=== PATIENT | male | born 1960 | race Caucasian/White ===

== ENCOUNTER → 2016-06-27 | Outpatient (CLI) | payer BC ==
--- NOTE | 2016-06-28 10:39 | ECHOF ---
Referral Reason:Dyspnea R06.00 MEASUREMENTS -------- HEIGHT: 152.4 cm WEIGHT: 104.3 kg BP: IVSd: 1.0 cm (0.6 - 1.1) LVIDd: 3.4 cm (3.9 - 5.3) LVPWd: 1.7 cm (0.6 - 1.1) IVSs: 1.5 cm LVIDs: 3.0 cm LVPWs: 1.4 cm MV E Shahriar: 0.54 m/s MV DecT: 197 ms MV A Shahriar: 0.80 m/s MV E/A Ratio: 0.68 RAP: 5.00 mmHg RVSP: 13.69 mmHg FINDINGS -------- Sinus rhythm. This was a techncally difficult study with suboptimal views, , Definity utilized for enhancement of images. There is mild concentric left ventricular hypertrophy. Overall left ventricular systolic function is normal with, an EF between 55 - 60 %. The right ventricle is normal in size. The left atrial size is normal. The right atrial size is normal. 1.5MG OF DEFINITY UTLIZED: 2 OR MORE WALL SEGMENTS NOT VISUALIZED. The aortic valve was not well visualized. Mild mitral annular calcification present. Mild mitral regurgitation is present. Mild tricuspid regurgitation present. There is no evidence of pulmonary hypertension. The right ventricular systolic pressure, as measured by Doppler, is 13.69mmHg. The pulmonic valve was not well visualized. The aortic root size is normal. There is no pericardial effusion. CONCLUSIONS -------- 1. This was a techncally difficult study with suboptimal views, , Definity utilized for enhancement of images. 2. The right ventricular systolic pressure, as measured by Doppler, is 13.69mmHg. 3. The pulmonic valve was not well visualized. 4. The aortic root size is normal. 5. There is no pericardial effusion. 6. There is mild concentric left ventricular hypertrophy. 7. Overall left ventricular systolic function is normal with, an EF between 55 - 60 %. 8. 1.5MG OF DEFINITY UTLIZED: 2 OR MORE WALL SEGMENTS NOT VISUALIZED. 9. The aortic valve was not well visualized. 10. Mild mitral annular calcification present. 11. Mild mitral regurgitation is present. 12. Mild tricuspid regurgitation present. 13. There is no evidence of pulmonary hypertension. LEAD SECTION SUPERVISOR: Yvette Hector RDCS
== END | disposition home or self-care (01) ==
LOC: RADECHMAIN 14:44
PROVIDERS: ATTEND Family Medicine
DX: I08.1 Rheumatic disorders of both mitral and tricuspid valves (principal)
CPT/HCPCS: 93306; Q9957

== ENCOUNTER 2016-11-30 09:32 | Day surgery (SDC) | payer BC ==
[2016-11-28 12:13] VITALS: BMI 31.8
[~2016-11-30 09:32] MED LIST: LACTATED RINGERS 1,000 ML IV SCH
[2016-11-30] MEDS ORDERED: LIDOCAINE 1% 20 ML VIAL (10MG/ML) FOR IV START SQ ONE (09:52)
[2016-11-30 09:57] VITALS: RESP 16; TEMP 98.3
[2016-11-30] MEDS ORDERED: PROPOFOL 10 MG/ML 20 ML VIAL IV ONE (10:45)
--- NOTE | 2016-11-30 11:22 | P.PCN ---
Date of Procedure: 11/30/16 Preoperative Diagnosis: Postoperative Diagnosis: Procedure(s) Performed: Procedure: Total colonoscopy. Preoperative diagnosis: Screening for neoplasia. Postoperative diagnosis: Sigmoid diverticulosis with no evidence of acute diverticulitis, strictures, polyps or cancer. Preparation: HalfLytely prep. Sedation: Was provided by anesthesia. Brief clinical history: The patient is a 56-year-old male who is referred for this evaluation for screening for neoplasia age being his risk factor. He has no abdominal complaints, bleeding or anemia. No family history of colon cancer. This would be his first colonoscopy. Procedure: With the patient on his left lateral decubitus position and after informed consent and adequate sedation, the perianal area was inspected and it did not show any fissures or fistulas. There were no masses felt on digital rectal examination. The Olympus CFQ 160L video colonoscope was then inserted in the rectum in the usual fashion and advanced to the cecum. The preparation was less than ideal, especially on the right side, with thick secretions and fecal debris that I could not wash off or suction completely. There were multiple diverticular orifices seen scattered in the sigmoid with no evidence of acute diverticulitis or strictures. No obvious polyps or tumors were seen. I retroflexed the endoscope in the rectum before the endoscope was withdrawn. The patient tolerated the procedure well. Plan: The patient was reassured. Discussed dietary measures. Since his preparation was less than ideal, I recommended repeat exam in 3-5 years before going with a 10-year screening schedule. He will follow up with you as planned. Implants: Indications for Procedure: Operative Findings: Description of Procedure:
[2016-11-30 11:53] VITALS: BP 128/89; PULSE 86
== END 2016-11-30 12:09 | disposition home or self-care (01) ==
LOC: ORWHC2ENDO 09:32
DX: Z12.11 Encounter for screening for malignant neoplasm of colon (principal); K57.30 Diverticulosis of large intestine without perforation or abscess without bleeding; I10 Essential (primary) hypertension; Z79.82 Long term (current) use of aspirin; Z79.899 Other long term (current) drug therapy; Z86.14 Personal history of Methicillin resistant Staphylococcus aureus infection
CPT/HCPCS: J2704; G0121; 45378

== ENCOUNTER → 2017-05-07 | Outpatient (CLI) | payer BC ==
--- NOTE | 2017-05-08 15:18 | US ---
EXAMINATION TYPE: US venous doppler duplex LE DATE OF EXAM: 05/07/2017 4:00 PM COMPARISON: Prior bilateral venous ultrasound May 29, 2016 CLINICAL HISTORY: M79.604,M79.605 ARIK LEG PAIN. SIDE PERFORMED: Bilateral 1) Color flow is present and patency is documented in the following vessels. No DVT or SVT is noted. External Iliac Vein (EIV) Common Femoral Vein Deep Femoral Vein Femoral Vein Popliteal Vein Proximal Calf Veins 2) There is venous reflux noted at the following venous levels: Common Femoral Vein Deep Femoral Vein Femoral Vein Popliteal Vein Greater Saph Vein Upper Small Saph Vein Grayscale, color doppler, spectral doppler imaging performed of the deep veins of the lower extremiti es. There is normal flow, compressibility, vascular waveforms. IMPRESSION: No evidence of acute DVT or SVT in either lower extremity. Bilateral venous reflux is ob served during real-time scanning per technologist as noted above.
--- NOTE | 2017-05-09 13:53 | P.ARTDOP ---
Arterial Doppler LOWER EXTREMITY ARTERIAL DOPPLER: DATE OF SERVICE: 05/07/2017 Reason for study: Bilateral calf pain and bilateral calf ulcers. Doppler waveforms: Multiphasic bilaterally throughout. Pulse volume recording: Normal configuration. Pressure gradients: None. Ankle-brachial indices: Greater than 1 bilaterally. Toe pressures: 143 on the right, 143 on the left Impression: Normal study.
== END | disposition home or self-care (01) ==
LOC: RADUSWWP 14:08
PROVIDERS: ATTEND Family Medicine
DX: I87.2 Venous insufficiency (chronic) (peripheral) (principal)
CPT/HCPCS: 93923; 93970

== ENCOUNTER → 2018-04-18 | Outpatient (CLI) | payer BC ==
--- NOTE | 2018-04-18 15:30 | US ---
DATE OF EXAM: 04/18/2018 2:05 PM COMPARISON: US CLINICAL HISTORY: I87.2 [place] INSUFFINECY. Non-healing wounds bilateral anterior feet x 8 weeks SIDE PERFORMED: Bilateral LOWER EXTREMITY VENOUS INSUFFICIENCY 1) Color flow is present and patency is documented in the following vessels. No DVT or SVT is noted . EIV Common Femoral Vein Deep Femoral Vein Femoral Vein Popliteal Vein Proximal Calf Veins Greater Saph Vein 2) There is venous reflux noted at the following venous levels: RIGHT: CFV GSV DEEP FEM V Prox FEM V Dist FEM V LEFT: CFV GSV Prox FEM V Dist FEM V Prox Pop V Dist Pop V IMPRESSION: 1. No sonographic evidence of deep venous thrombosis within either lower extremity. 2. Venous reflux throughout the bilateral lower extremities as detailed above.
--- NOTE | 2018-04-24 09:38 | P.ARTDOP ---
Arterial Doppler LOWER EXTREMITY ARTERIAL DOPPLER: DATE OF SERVICE: 04/18/2018 Reason for study: Bilateral foot ulcers. Doppler waveforms: Multiphasic bilaterally throughout. Pulse volume recording: Normal configuration throughout. Pressure gradients: None. Ankle-brachial indices: Greater than 1 bilaterally. Toe pressures: [] on the right, 89 on the left Impression: Normal study.
== END | disposition home or self-care (01) ==
LOC: RADUSWWP 13:30
PROVIDERS: ATTEND Family Medicine
DX: I87.2 Venous insufficiency (chronic) (peripheral) (principal)
CPT/HCPCS: 93923; 93970

== ENCOUNTER 2018-06-11 14:05 | Inpatient (IN) | payer BC ==
[2018-06-11] MEDS ORDERED: SODIUM CHLORIDE 0.9% 1,000 ML IV STA (15:07)
--- NOTE | 2018-06-11 15:19 | ED ---
Extremity Problem HPI - General Chief complaint: Extremity Problem,Nontraumatic Stated complaint: wounds on feet Time Seen by Provider: 06/11/18 14:14 Source: patient, RN notes reviewed, old records reviewed Mode of arrival: wheelchair Limitations: no limitations - History of Present Illness Initial comments: This is a 58-year-old male to the ER for evaluation. This patient presents today for evaluation regards to bilateral lower Shorty pain, severe also some anterior aspects, volar aspects of both feet. Pulses are currently being divided by wound care but he states the pain is gone to the point where he is completely severe is unable to ambulate. Patient has significant pain to both lower extremities with discoloration. - Related Data Home Medications Medication Instructions Recorded Confirmed Losartan-Hctz 50-12.5 mg [Hyzaar 1 tab PO HS 04/25/17 06/11/18 50-12.5] Allergies Allergy/AdvReac Type Severity Reaction Status Date / Time No Known Allergies Allergy Verified 06/11/18 14:33 Review of Systems ROS Statement: Those systems with pertinent positive or pertinent negative responses have been documented in the HPI. ROS Other: All systems not noted in ROS Statement are negative. Past Medical History Past Medical History: Hypertension, Vascular Disorder Additional Past Medical History / Comment(s): PERIPHERAL VASCULAR DISEASE. WOUND TO TOP OF BILAT FEET History of Any Multi-Drug Resistant Organisms: MRSA Date of last positivie culture/infection: 06/22/2015 MDRO Source:: left leg Past Surgical History: No Surgical Hx Reported Additional Past Surgical History / Comment(s): COLONOSCOPY Past Anesthesia/Blood Transfusion Reactions: No Reported Reaction Additional Past Anesthesia/Blood Transfusion Reaction / Comment(s): states has never had anesthesia Past Psychological History: No Psychological Hx Reported Smoking Status: Current every day smoker Past Alcohol Use History: Daily, Occasional Past Drug Use History: None Reported - Past Family History Mother Family Medical History: No Reported History Father Family Medical History: Cancer Additional Family Medical History / Comment(s): LUNG CANCER General Exam Limitations: no limitations General appearance: alert, in no apparent distress Head exam: Present: atraumatic, normocephalic, normal inspection Eye exam: Present: normal appearance, PERRL, EOMI. Absent: scleral icterus, conjunctival injection, periorbital swelling ENT exam: Present: normal exam, mucous membranes moist Neck exam: Present: normal inspection. Absent: tenderness, meningismus, lymphadenopathy Respiratory exam: Present: normal lung sounds bilaterally. Absent: respiratory distress, wheezes, rales, rhonchi, stridor Cardiovascular Exam: Present: regular rate, normal rhythm, normal heart sounds. Absent: systolic murmur, diastolic murmur, rubs, gallop, clicks GI/Abdominal exam: Present: soft, normal bowel sounds. Absent: distended, tenderness, guarding, rebound, rigid Extremities exam: Present: normal inspection, full ROM, normal capillary refill , other (Bilateral lower extremity edema, pallor with cyanosis, several ulcers) . Absent: tenderness, pedal edema, joint swelling, calf tenderness Back exam: Present: normal inspection Neurological exam: Present: alert, oriented X3, CN II-XII intact Psychiatric exam: Present: normal affect, normal mood Skin exam: Present: warm, dry, intact, normal color. Absent: rash Course Vital Signs 06/11/18 14:06 Temperature 97.8 F Pulse Rate 94 Respiratory 18 Rate Blood Pressure 157/92 O2 Sat by Pulse 99 Oximetry - Reevaluation(s) Reevaluation #1: 06/11/18 15:18 Medical records reviewed Reevaluation #2: 06/11/18 15:19 Patient with pain control Reevaluation #3: 06/11/18 16:53 spoke with Ped[facility] for [facility] as patient sees Dr Bravo for PCP Medical Decision Making - Medical Decision Making 38 male the ER with severe bilateral lower extremity pain, patient will be admitted for care and felt outpatient treatment of bilateral foot ulcers - Lab Data Result diagrams: 06/11/18 15:28 06/11/18 15:28 Lab Results 06/11/18 06/11/18 06/11/18 Range/Units 15:28 15:28 15:28 WBC 4.0 (3.8-10.6) k/uL RBC 3.98 L (4.30-5.90) m/uL Hgb 16.5 (13.0-17.5) gm/dL Hct 49.5 (39.0-53.0) % MCV 124.4 H (80.0-100.0) fL MCH 41.5 H (25.0-35.0) pg MCHC 33.3 (31.0-37.0) g/dL RDW 15.5 (11.5-15.5) % Plt Count 149 L (150-450) k/uL Neutrophils % 80 % Lymphocytes % 9 % Monocytes % 6 % Eosinophils % 2 % Basophils % 0 % Neutrophils # 3.2 (1.3-7.7) k/uL Lymphocytes # 0.4 L (1.0-4.8) k/uL Monocytes # 0.3 (0-1.0) k/uL Eosinophils # 0.1 (0-0.7) k/uL Basophils # 0.0 (0-0.2) k/uL Manual Slide Review Performed Macrocytosis Marked PT (9.0-12.0) sec INR (<1.2) APTT (22.0-30.0) sec Sodium 138 (137-145) mmol/L Potassium 4.5 (3.5-5.1) mmol/L Chloride 102 (98-107) mmol/L Carbon Dioxide 29 (22-30) mmol/L Anion Gap 7 mmol/L BUN 16 (9-20) mg/dL Creatinine 0.62 L (0.66-1.25) mg/dL Est GFR (CKD-EPI)AfAm >90 (>60 ml/min/1.73 sqM) Est GFR (CKD-EPI)NonAf >90 (>60 ml/min/1.73 sqM) Glucose 114 H (74-99) mg/dL Calcium 9.3 (8.4-10.2) mg/dL Phosphorus 2.6 (2.5-4.5) mg/dL Magnesium 1.5 L (1.6-2.3) mg/dL Total Bilirubin 2.4 H (0.2-1.3) mg/dL AST 27 (17-59) U/L ALT 26 (21-72) U/L Alkaline Phosphatase 93 (38-126) U/L Total Creatine Kinase 87 (55-170) U/L CK-MB (CK-2) 2.8 H (0.0-2.4) ng/mL CK-MB (CK-2) Rel Index 3.2 Troponin I <0.012 (0.000-0.034) ng/mL Total Protein 7.6 (6.3-8.2) g/dL Albumin 4.1 (3.5-5.0) g/dL 1218/18 Range/Units 15:28 WBC (3.8-10.6) k/uL RBC (4.30-5.90) m/uL Hgb (13.0-17.5) gm/dL Hct (39.0-53.0) % MCV (80.0-100.0) fL MCH (25.0-35.0) pg MCHC (31.0-37.0) g/dL RDW (11.5-15.5) % Plt Count (150-450) k/uL Neutrophils % % Lymphocytes % % Monocytes % % Eosinophils % % Basophils % % Neutrophils # (1.3-7.7) k/uL Lymphocytes # (1.0-4.8) k/uL Monocytes # (0-1.0) k/uL Eosinophils # (0-0.7) k/uL Basophils # (0-0.2) k/uL Manual Slide Review Macrocytosis PT 11.1 (9.0-12.0) sec INR 1.0 (<1.2) APTT 25.1 (22.0-30.0) sec Sodium (137-145) mmol/L Potassium (3.5-5.1) mmol/L Chloride (98-107) mmol/L Carbon Dioxide (22-30) mmol/L Anion Gap mmol/L BUN (9-20) mg/dL Creatinine (0.66-1.25) mg/dL Est GFR (CKD-EPI)AfAm (>60 ml/min/1.73 sqM) Est GFR (CKD-EPI)NonAf (>60 ml/min/1.73 sqM) Glucose (74-99) mg/dL Calcium (8.4-10.2) mg/dL Phosphorus (2.5-4.5) mg/dL Magnesium (1.6-2.3) mg/dL Total Bilirubin (0.2-1.3) mg/dL AST (17-59) U/L ALT (21-72) U/L Alkaline Phosphatase (38-126) U/L Total Creatine Kinase (55-170) U/L CK-MB (CK-2) (0.0-2.4) ng/mL CK-MB (CK-2) Rel Index Troponin I (0.000-0.034) ng/mL Total Protein (6.3-8.2) g/dL Albumin (3.5-5.0) g/dL - EKG Data -: EKG Interpreted by Me (EKG shows sinus rhythm rate of 85, VT 160, QRS 80, QTC 490) Disposition Clinical Impression: Venous insufficiency of both lower extremities, Pressure ulcer of right foot, stage 3, Pressure ulcer of left foot, stage 3, Failure of outpatient treatment Disposition: ADMITTED IP TO THIS HOSP Condition: Fair Is patient prescribed a controlled substance at d/c from ED?: No Referrals: Michael Lund DO [Primary Care Provider] - 1-2 days
--- NOTE | 2018-06-11 15:20 | XR ---
EXAMINATION TYPE: XR foot complete bilateral, 3 views each DATE OF EXAM: 06/11/2018 COMPARISON: 04/26/2017 HISTORY: 58-year-old male with bilateral foot pain with nonhealing wounds across the anterior surface s FINDINGS: Right: Stable truncated appearance to the tuft of the great toe and mild degenerative change at the first MT P joint. Bipartite tibial sesamoid noted. Small plantar calcaneal spur. No acute fracture, subluxatio n, or dislocation. Left: Stable slightly truncated appearance to the tuft of the great toe. Mild degenerative change at the fi rst MTP joint. No acute fracture, subluxation, or dislocation. Degenerative dorsal midfoot spurring. IMPRESSION: Stable appearance to the tuft of the great toes as compared to 04/26/2017 suggesting chronic postinfla mmatory/postinfectious sequela. No progressive osteolysis to suggest active osteomyelitis.
[2018-06-11 15:56] LABS: Partial Thromboplastin Time 25.1 sec (22.0-30.0); Prothrombin Time 11.1 sec (9.0-12.0)
[2018-06-11 15:57] LABS: ALT 26 U/L (21-72); AST 27 U/L (17-59); Albumin 4.1 g/dL (3.5-5.0); Alkaline Phosphatase 93 U/L (38-126); Anion Gap 7 mmol/L; Basophils % (A) 0 %; Blood Urea Nitrogen 16 mg/dL (9-20); Calcium 9.3 mg/dL (8.4-10.2); Carbon Dioxide 29 mmol/L (22-30); Chloride 102 mmol/L (98-107); Eosinophils # (A) 0.1 k/uL (0-0.7); Eosinophils % (A) 2 %; Glucose 114 mg/dL (74-99); HCT 49.5 % (39.0-53.0); HGB 16.5 gm/dL (13.0-17.5); Lymphocytes # (A) 0.4 k/uL (1.0-4.8); Lymphocytes % (A) 9 %; MCH 41.5 pg (25.0-35.0); MCHC 33.3 g/dL (31.0-37.0); MCV 124.4 fL (80.0-100.0); Macrocytosis Marked; Magnesium 1.5 mg/dL (1.6-2.3); Mean Platelet Volume 6.9; Monocytes # (A) 0.3 k/uL (0-1.0); Monocytes % (A) 6 %; Neutrophils # (A) 3.2 k/uL (1.3-7.7); Neutrophils % (A) 80 %; Phosphorus 2.6 mg/dL (2.5-4.5); Platelet Count 149 k/uL (150-450); Potassium 4.5 mmol/L (3.5-5.1); RBC 3.98 m/uL (4.30-5.90); RDW 15.5 % (11.5-15.5); Sodium 138 mmol/L (137-145); Total Bilirubin 2.4 mg/dL (0.2-1.3); Total Protein 7.6 g/dL (6.3-8.2)
[2018-06-11 16:07] LABS: Creatine Kinase 87 U/L (55-170)
[2018-06-11 16:20] LABS: Creatine Kinase MB 2.8 ng/mL (0.0-2.4); Troponin I <0.012 ng/mL (0.000-0.034)
[2018-06-11] MEDS ORDERED: SODIUM CHLORIDE 0.9% 1,000 ML IV ONE (16:55)
[2018-06-11 17:07] LABS: Amorphous Sediment,Urine Rare /hpf; Appearance,Urine Cloudy (Clear); Bilirubin,Urine Negative (Negative); Blood,Urine Small (Negative); Color,Urine Light Orange; Glucose,Urine (UA) Negative (Negative); Hyaline Casts,Urine 4 /lpf (0-2); Ketones,Urine Negative (Negative); Leukocyte Esterase,Urine Negative (Negative); Mucus,Urine Rare /hpf; Nitrite,Urine Negative (Negative); Protein,Urine 1+ (Negative); RBC,Urine 4 /hpf (0-5); Specific Gravity,Urine 1.024 (1.001-1.035); Squamous Epithelial Cell,Urine <1 /hpf (0-4); WBC,Urine 4 /hpf (0-5)
[2018-06-11] MEDS ORDERED: MORPHINE SULFATE 4 MG/ML SYRINGE IVP PRN (17:42)
[2018-06-11] MEDS ORDERED: MORPHINE SULFATE 4 MG/ML SYRINGE IVP STA (17:42)
[2018-06-11] MEDS ORDERED: ACETAMINOPHEN TAB 500 MG TAB PO PRN (21:27)
[2018-06-11] MEDS ORDERED: TEMAZEPAM 15 MG CAP PO PRN (21:27)
[2018-06-11] MEDS ORDERED: VANCOMYCIN IV PER PHARMACY 1 EACH MISC MISCELLANE PRN (21:29)
[2018-06-11] MEDS ORDERED: IPRATROPIUM-ALBUTEROL 3 ML NEB INHALATION PRN (21:31)
[2018-06-11] MEDS ORDERED: cloNIDine HCL 0.1 MG TAB PO PRN (21:32)
[2018-06-11] MEDS: LOSARTAN-HCTZ 50-12.5 MG 1 EACH TAB PO SCH (22:25)
[2018-06-11] MEDS: NICOTINE 14MG/24HR PATCH TRANSDERM SCH (22:25)
[2018-06-11] MEDS: cloNIDine HCL 0.1 MG TAB PO SCH (22:26)
[2018-06-11] MEDS: HYDROcodone/APAP 5-325MG 1 EACH TAB PO PRN (22:26)
[2018-06-11] MEDS: ALPRAZolam 0.25 MG TAB PO PRN (22:26)
[2018-06-11] MEDS: VANCOMYCIN 1,750 MG in SODIUM CHLORIDE 0.9% 500 ML 500 ML IVPB SCH (22:31)
--- NOTE | 2018-06-11 23:23 | HP ---
HISTORY AND PHYSICAL DATE OF SERVICE: 06/11/2018 CHIEF COMPLAINTS: Pain and swelling of both feet and infection and alcohol withdrawal. HISTORY OF PRESENT ILLNESS: This 58-year-old gentleman with a past medical history of multiple medical problems, including COPD, hypertension, history of vascular disorder, peripheral vascular disease, being followed by Dr. Lund in the outpatient setting, has had a nonhealing wound over the past several months. The patient apparently went to Wound Care, also. The patient apparently had debridement about 2 weeks ago. The patient was complaining of increasing pain and swelling and discharge from both feet. Patient also was found to be confused and delirious. Patient was taking about 4-5 drinks. The patient came to [facility], was admitted for further evaluation and treatment. The patient is unable to ambulate because of discomfort at this time. There is no history of any fever, rigor or chills. No history of headache, loss of consciousness, seizures. PAST MEDICAL HISTORY: 1. COPD. 2. Hypertension. 3. History of peripheral vascular disease. 4. History of nicotine dependence. 5. Alcohol. HOME MEDICATIONS: Losartan/hydrochlorothiazide 50/12.5 (Hyzaar) 1 tablet p.o. at bedtime. ALLERGIES: NONE. FAMILY HISTORY: History of lung cancer in the family. SOCIAL HISTORY: History of alcohol and smoking. Current smoking, as mentioned earlier. REVIEW OF SYSTEMS: ENT: Diminished hearing. Diminished vision. CARDIOVASCULAR SYSTEM: No angina, palpitations. RESPIRATORY SYSTEM: As mentioned earlier. GI: No nausea, vomiting. : No dysuria or retention. NERVOUS SYSTEM: No numbness, weakness. ALLERGY/IMMUNOLOGY: No asthma, hayfever. MUSCULOSKELETAL: As mentioned earlier. HEMATOLOGY/ONCOLOGY: No history of anemia. ENDOCRINE: No history of diabetes, hypothyroidism. CONSTITUTIONAL: As mentioned earlier. DERMATOLOGY: Negative. RHEUMATOLOGY: Negative. PSYCHIATRY: As mentioned earlier. PHYSICAL EXAMINATION: Patient is alert, oriented x3. The pulse is 86, blood pressure 167/90, respiration 18, temperature 98 degrees, pulse ox 97% on room air. HEENT: Conjunctivae normal. Oral mucosa moist. NECK: No jugular venous distention. No carotid bruit. No lymph node enlargement. CARDIOVASCULAR SYSTEM: S1, S2 muffled. RESPIRATORY SYSTEM: Breath sounds diminished at the bases. No rhonchi. No crackles. ABDOMEN: Soft, non-tender. No mass palpable. LEGS: Bilateral leg swelling and edema. Pulses are diminished bilaterally. Significant ulceration, left more than the right foot, also present. Some peripheral neuropathy also present. NERVOUS SYSTEM: Higher functions as mentioned earlier. Moves all 4 limbs. No focal motor deficit. Diffuse tremors present. LYMPHATICS: No lymph node palpable in neck, axillae or groin. SKIN: As mentioned earlier. JOINTS: No active deforming arthropathy. LABS: Labs at this time show WBC 4, hemoglobin 16.5, MCV 124.4, magnesium 1.5. ASSESSMENT: 1. Bilateral severe leg ulceration with failure of outpatient treatment with cellulitis. 2. Peripheral vascular disease. 3. Hypomagnesemia. 4. ETOH as well as ETOH withdrawal with acute delirium tremens. 5. Increased mean corpuscular volume. 6. Peripheral vascular disease. 7. Hypertension. 8. Chronic obstructive pulmonary disease. 9. History of nicotine dependence. RECOMMENDATIONS AND DISCUSSION: In this 58-year-old gentleman who presented with multiple complex medical issues, we will monitor the patient closely, continue the current management, continue symptomatic treatment. Otherwise at this time I would monitor the patient closely. Local treatment of the wounds. Wound cultures have been obtained. I will initiate broad-spectrum empiric antibiotics on an empiric basis with Zosyn and vancomycin. Will obtain infectious disease evaluation. Local wound care. Pain medications will be advised. The patient also has significant features of acute delirium tremens. I would recommend initiating CIWA protocol with Ativan, IV or p.o., and also supplement vitamins. Empiric antibiotics will be started, as mentioned earlier. I would also recommend bronchodilators because of COPD and Habitrol smoking cessation advised. Symptomatic treatment of the pain. Multivitamins and supplements. DVT prophylaxis. The overall prognosis is guarded because of the multiple complex medical issues. Further recommendations to follow. I would also recommend [facility] and Case Management to evaluate the home situation and arrange possible rehab as well. Once again, the prognosis is extremely guarded because of multiple complex medical issues. A copy of this dictation is being forwarded to Dr. Lund, who is the primary physician. MMODL / IJN: [id number] /
[2018-06-12] MEDS: PIPERACILLIN-TAZOBACTAM 3.375 GM in SODIUM CHLORIDE 0.9% 100 ML IVPB SCH ×3 (01:38→15:11)
[2018-06-12] MEDS: IPRATROPIUM-ALBUTEROL 3 ML NEB INHALATION SCH ×3 (06:49→19:45)
[2018-06-12] MEDS: VANCOMYCIN 1,750 MG in SODIUM CHLORIDE 0.9% 500 ML 500 ML IVPB SCH ×3 (06:55→21:47)
[2018-06-12] MEDS: NICOTINE 14MG/24HR PATCH TRANSDERM SCH (08:09)
[2018-06-12] MEDS: MULTIVITAMINS, THERA 1 EACH TAB PO SCH (08:10)
[2018-06-12] MEDS: PANTOPRAZOLE 40 MG TABLET PO SCH (08:10)
[2018-06-12] MEDS: THIAMINE 100 MG TAB PO SCH (08:10)
[2018-06-12] MEDS: FOLIC ACID 1 MG TAB PO SCH (08:10)
[2018-06-12] MEDS: ENOXAPARIN 40 MG/0.4 ML SYRINGE SQ SCH (08:10)
[2018-06-12] MEDS: cloNIDine HCL 0.1 MG TAB PO SCH ×3 (08:10→21:47)
[2018-06-12 09:24] LABS: Basophils % (A) 1 %; Eosinophils # (A) 0.1 k/uL (0-0.7); Eosinophils % (A) 4 %; HCT 43.6 % (39.0-53.0); HGB 14.7 gm/dL (13.0-17.5); Lymphocytes # (A) 0.4 k/uL (1.0-4.8); Lymphocytes % (A) 12 %; MCH 41.7 pg (25.0-35.0); MCHC 33.7 g/dL (31.0-37.0); MCV 123.9 fL (80.0-100.0); Macrocytosis Marked; Mean Platelet Volume 7.8; Monocytes # (A) 0.3 k/uL (0-1.0); Monocytes % (A) 10 %; Neutrophils # (A) 2.4 k/uL (1.3-7.7); Neutrophils % (A) 72 %; Platelet Count 135 k/uL (150-450); RBC 3.52 m/uL (4.30-5.90); RDW 15.2 % (11.5-15.5); WBC 3.4 k/uL (3.8-10.6)
[2018-06-12 09:43] LABS: Anion Gap 6 mmol/L; Blood Urea Nitrogen 14 mg/dL (9-20); Calcium 8.9 mg/dL (8.4-10.2); Carbon Dioxide 31 mmol/L (22-30); Chloride 103 mmol/L (98-107); Glucose 118 mg/dL (74-99); Magnesium 1.4 mg/dL (1.6-2.3); Potassium 4.2 mmol/L (3.5-5.1); Sodium 140 mmol/L (137-145)
[2018-06-12 10:26] LABS: Poikilocytosis (M) Present
[2018-06-12] MEDS: MAGNESIUM SULFATE-D5W PMX 1 GM in DEXTROSE/WATER 1 100ML.BAG IVPB SCH ×2 (11:41→12:58)
[2018-06-12] MEDS: MAGNESIUM OXIDE 400 MG TAB PO SCH ×3 (11:45→21:47)
[2018-06-12] MEDS: HYDROcodone/APAP 5-325MG 1 EACH TAB PO PRN (11:45)
[2018-06-12] MEDS: COLLAGENASE 250 UNIT/GM OINTMENT 30 GM TUBE TOPICAL SCH (14:34)
[2018-06-12] MEDS: HYDROmorphone 0.5 MG/0.5 ML SYRINGE IVP PRN ×3 (15:25→22:20)
[2018-06-12] MEDS: LOSARTAN-HCTZ 50-12.5 MG 1 EACH TAB PO SCH (21:47)
--- NOTE | 2018-06-12 23:06 | CONS ---
CONSULTATION DATE OF SERVICE: 06/12/2018 REASON FOR CONSULTATION: Bilateral lower extremity wounds and cellulitis. HISTORY OF PRESENT ILLNESS: The patient is a 58-year-old male with a past medical history significant for bilateral lower extremity venostasis ulcers, predominantly involving the left foot that has been going on for a few months now. The patient did have a workup done in the outpatient setting. His arterial Dopplers were normal. Venous Doppler did show evidence of reflux. The patient presented to the ER yesterday afternoon with an increase in pain, swelling to bilateral wounds, most remarkable on the left foot. Pain is described to be throbbing, with intensity of about 6 to 7 out of 10, and no radiation. The patient did have slight drainage from it with associated swelling and redness. He had some chills but denies any high-grade fever. The patient was evaluated in the ER. He did have x-rays of the foot which showed chronic post-inflammatory or post-infectious sequelae. No progressive osteolysis to suggest osteomyelitis. Patient did not have any fever. His white count was normal. He did have a UA that was negative. Local wound cultures were obtained. He was started on broad-spectrum antibiotics in form of Zosyn, Rocephin and vancomycin. Infectious Disease was consulted for further recommendations regarding antibiotic therapy and local wound care. REVIEW OF SYSTEMS: Positive points have been mentioned in the HPI. The rest of the systems has been negative. PAST MEDICAL HISTORY: Significant for: 1. Venostasis ulcers, bilateral lower extremities. 2. Hypertension. 3. Previous history of MRSA in the left leg. PAST SURGICAL HISTORY: Colonoscopy. No other major surgery. SOCIAL HISTORY: The patient is a current everyday smoker. drinks. No drug use. FAMILY HISTORY: Father with history of lung cancer. ALLERGIES: NO KNOWN DRUG ALLERGIES. MEDICATIONS: Current medications include: 1. Tylenol. 2. Custer. 3. DuoNeb. 4. Xanax. 5. Catapres. 6. Lovenox. 7. Folic acid. 8. Hydrochlorothiazide. 9. Dilaudid. 10.Magnesium oxide. 11.Vancomycin, Pharmacy to dose. 12.Zosyn. 13.Rocephin. PHYSICAL EXAMINATION: Blood pressure is 136/88 with a pulse of 75, temperature 97.3. He is 93% on room air. General description is a middle-aged male lying in bed in no distress. No tachypnea or accessory muscle of respiration use. HEENT examination shows no pallor or scleral icterus. Oral mucosa membrane is dry. No pharyngeal erythema or thrush. NECK: Trachea is central. No thyromegaly. LUNGS: Unlabored breathing. Clear to auscultation anteriorly. No wheeze or crackle. HEART: S1, S2. Regular rate and rhythm. ABDOMEN: Soft. No tenderness. No guarding or rigidity. EXTREMITIES: No edema of feet. Examination of bilateral feet: On the left foot the patient did have 2 wounds, one on the dorsum, one at the base of the second and third toes. The wound on the dorsum did show slough tissue with some surrounding swelling and redness. No foul-smelling drainage. On the right leg he did have a wound at the base of the second and third toes. No slough tissue. Minimal surrounding swelling and redness. No drainage. Neurologically the patient is awake, alert, oriented x3. Mood and affect normal. LABS: Hemoglobin is 14.7, hemoglobin 3.4, BUN of 14, creatinine 0.68. UA has been negative. X-ray negative for any bony changes. Blood culture and wound culture currently pending. DIAGNOSTIC IMPRESSION AND PLAN: Patient with bilateral lower extremity/foot venostasis ulcers with secondary cellulitis, left more than the right leg, in a patient who does have a previous history of methicillin-resistant Staphylococcus aeruginosa infection. Will need to cover for both MRSA as well as a gram-negative pathogen. PLAN: 1. Local wound care to the left leg dorsum wound with moist dressing to be changed daily. 2. Wound care to the bilateral feet to wound at the base of the second and third toes with an Aquacel Silver dressing to be applied dry. Change daily. 3. We will keep the patient on vancomycin, Pharmacy to dose, while watching kidney function and vancomycin trough closely. 4. Zosyn 3.375 q.8 hours. Discontinue the Rocephin. 5. Will follow on clinical condition and cultures to further adjust medication if needed. Thank you for this consultation. Will follow this patient along with you. MMODL / IJN: [id number] /
[2018-06-13] MEDS: HYDROcodone/APAP 5-325MG 1 EACH TAB PO PRN ×3 (00:35→20:26)
[2018-06-13] MEDS: ALPRAZolam 0.25 MG TAB PO PRN (00:35)
[2018-06-13] MEDS: PIPERACILLIN-TAZOBACTAM 3.375 GM in SODIUM CHLORIDE 0.9% 100 ML IVPB SCH ×4 (03:02→23:01)
[2018-06-13] MEDS ORDERED: VANCOMYCIN TROUGH DUE 1 EACH MISC MISCELLANE ONE (05:30)
[2018-06-13 06:08] LABS: Basophils % (A) 1 %; Eosinophils # (A) 0.2 k/uL (0-0.7); Eosinophils % (A) 6 %; HCT 41.5 % (39.0-53.0); HGB 13.7 gm/dL (13.0-17.5); Lymphocytes # (A) 0.5 k/uL (1.0-4.8); Lymphocytes % (A) 16 %; MCH 41.1 pg (25.0-35.0); MCV 124.4 fL (80.0-100.0); Mean Platelet Volume 7.1; Monocytes # (A) 0.2 k/uL (0-1.0); Monocytes % (A) 7 %; Neutrophils # (A) 2.1 k/uL (1.3-7.7); Neutrophils % (A) 67 %; Platelet Count 110 k/uL (150-450); RBC 3.33 m/uL (4.30-5.90); RDW 15.1 % (11.5-15.5); WBC 3.2 k/uL (3.8-10.6)
[2018-06-13 06:20] LABS: Anion Gap 5 mmol/L; Blood Urea Nitrogen 15 mg/dL (9-20); Calcium 8.9 mg/dL (8.4-10.2); Carbon Dioxide 31 mmol/L (22-30); Chloride 101 mmol/L (98-107); Glucose 105 mg/dL (74-99); Potassium 4.2 mmol/L (3.5-5.1); Sodium 137 mmol/L (137-145)
[2018-06-13 06:44] LABS: Macrocytosis Marked
[2018-06-13] MEDS: VANCOMYCIN 1,750 MG in SODIUM CHLORIDE 0.9% 500 ML 500 ML IVPB SCH ×2 (06:44→17:03)
[2018-06-13] MEDS: IPRATROPIUM-ALBUTEROL 3 ML NEB INHALATION SCH ×3 (07:03→19:17)
[2018-06-13] MEDS: ENOXAPARIN 40 MG/0.4 ML SYRINGE SQ SCH (07:55)
[2018-06-13] MEDS: MAGNESIUM OXIDE 400 MG TAB PO SCH ×3 (07:55→20:26)
[2018-06-13] MEDS: THIAMINE 100 MG TAB PO SCH ×2 (07:55→23:01)
[2018-06-13] MEDS: FOLIC ACID 1 MG TAB PO SCH (07:55)
[2018-06-13] MEDS: NICOTINE 14MG/24HR PATCH TRANSDERM SCH (07:55)
[2018-06-13] MEDS: PANTOPRAZOLE 40 MG TABLET PO SCH (07:55)
[2018-06-13] MEDS: MULTIVITAMINS, THERA 1 EACH TAB PO SCH (07:55)
[2018-06-13] MEDS: cloNIDine HCL 0.1 MG TAB PO SCH ×3 (07:55→20:26)
[2018-06-13] MEDS: COLLAGENASE 250 UNIT/GM OINTMENT 30 GM TUBE TOPICAL SCH (15:53)
[2018-06-13] MEDS: HYDROmorphone 0.5 MG/0.5 ML SYRINGE IVP PRN ×3 (15:57→23:50)
[2018-06-13] MEDS: LOSARTAN-HCTZ 50-12.5 MG 1 EACH TAB PO SCH (20:26)
[2018-06-13] MEDS ORDERED: THIAMINE 100 MG/ML 2 ML VIAL IM STA (21:49)
[2018-06-13] MEDS ORDERED: LORazepam 2 MG/ML INJ IV PRN ×3 (21:49)
--- NOTE | 2018-06-13 21:55 | P.PN ---
Subjective Progress Note Date: 06/12/18 Progress note being dictated for Dr. Candelario. Interval history: This is a 58-year-old gentleman admitted with bilateral leg ulceration, cellulitis with failure of outpatient treatment, peripheral vascular disease, EtOH abuse and multiple other medical issues. Maintained on broad-spectrum empiric antibiotics., IV fluid hydration. Evaluated by infectious disease with antibiotics adjusted, wound care recommendations noted. Denies chest pain, palpitations or increasing shortness of breath. Pain controlled. Magnesium 1.4. Objective - Vital Signs Vital signs: Vital Signs Temp 97.3 F L 06/12/18 14:58 Pulse 86 06/12/18 19:54 Resp 16 06/12/18 19:54 BP 136/88 06/12/18 14:58 Pulse Ox 93 L 06/12/18 14:58 Intake & Output 06/12/18 06/12/18 06/13/18 06:59 18:59 06:59 Intake Total 1800 Balance 1800 Intake: IV 1500 Magnesium Sulfate-D5w Pmx 100 1 gm In Dextrose/Water 1 100ml.bag @ 100 mls/hr IVPB Q1H [facility] Rx#: [id number] Piperacillin-Tazobactam 3 100 .375 gm In Sodium Chloride 0.9% 100 ml @ 25 mls/hr IVPB Q8HR [facility] Rx# :[id number] Sodium Chloride 0.9% 1, 800 000 ml @ 100 mls/hr IV . Q10H [facility] Rx#:[id number] Vancomycin 1,750 mg In 500 Sodium Chloride 0.9% 500 ml 500 ml @ 167 mls/hr IVPB Q8H [facility] Rx#: [id number] Intake, IV Titration 100 Amount Magnesium Sulfate-D5w Pmx 100 1 gm In Dextrose/Water 1 100ml.bag @ 100 mls/hr IVPB Q1H [facility] Rx#: [id number] Oral 200 Other: Voiding Method Toilet # Voids 2 - Exam PHYSICAL EXAM: VITAL SIGNS: As above GENERAL: Sitting up in bed, no acute distress HEENT: Conjunctivae normal. eyes normal. Oral Mucosa moist NECK: No JVD. No thyroid enlargement. No LNs CARDIOVASCULAR: S1, S2 muffled. No murmur RESPIRATION: Breath sounds diminished in the bases. No rhonchi or crackles. No bronchial breathing. ABDOMEN: Soft, nontender . No guarding. no masses palpable. Bowel sounds heard. LEGS: Bilateral leg edema, diminished pulses bilateral with significant ulceration left greater than right foot, peripheral neuropathy present PSYCHIATRY: Alert and oriented -3, mood and affect normal. NERVOUS SYSTEM: Cranial N 2-12 grossly normal. Moves all 4 limbs. Diffuse weakness No focal deficits. Diffuse tremors Lymphatic system. No LN neck axilla or groin. - Labs CBC & Chem 7: 06/13/18 05:18 06/13/18 05:18 Labs: Abnormal Lab Results - Last 24 Hours (Table) 06/12/18 06/12/18 Range/Units 08:24 08:24 WBC 3.4 L (3.8-10.6) k/uL RBC 3.52 L (4.30-5.90) m/uL MCV 123.9 H (80.0-100.0) fL MCH 41.7 H (25.0-35.0) pg Plt Count 135 L (150-450) k/uL Lymphocytes # 0.4 L (1.0-4.8) k/uL Carbon Dioxide 31 H (22-30) mmol/L Glucose 118 H (74-99) mg/dL Magnesium 1.4 L (1.6-2.3) mg/dL Microbiology - Last 24 Hours (Table) 06/11/18 15:28 Blood Culture - Preliminary Blood No Growth after 24 hours 06/11/18 20:00 Gram Stain - Preliminary Foot - Right Wound Culture - Preliminary 06/11/18 20:00 Gram Stain - Preliminary Foot - Left Wound Culture - Preliminary 06/11/18 16:30 Urine Culture - Preliminary Urine,Voided 06/11/18 20:00 Anaerobic Culture - Preliminary Foot - Left 06/11/18 20:00 Anaerobic Culture - Preliminary Foot - Right Assessment and Plan Assessment: -Bilateral severe leg ulceration, cellulitis with failed outpatient treatment -Peripheral vascular disease -Hypomagnesemia -EtOH abuse, EtOH withdrawal with acute DTs -Hypertension -History of nicotine dependence -COPD Plan: Continue on current medication regime ,monitoring and symptomatic treatment. Antibiotics/Wound Care as per infectious disease .was monitoring of renal function, electrolytes,repeat labs ordered for a.m. Magnesium to be supplemented per replacement protocol as ordered. Wound cultures pending. Maintain CIWAl protocol. Continue on nebulized bronchodilators, nicotine patch. Smoking cessation readdressed. PT/OT Potential subacute rehab at discharge. The impression and plan of care has been dictated as directed. : I performed a history and examination of this patient, discussed the same with the dictator. I agree with the dictator's note ,documented as a scribe. Any additional findings or plans will be noted.
--- NOTE | 2018-06-13 22:05 | P.PN ---
Subjective Progress Note Date: 06/13/18 Progress note being dictated for Dr. Tinajero Interval history: This is a 58-year-old gentleman admitted with bilateral leg ulceration, cellulitis with failure of outpatient treatment, peripheral vascular disease, EtOH abuse and multiple other medical issues. Maintained on broad-spectrum empiric antibiotics., IV fluid hydration. Evaluated by infectious disease with antibiotics adjusted, wound care recommendations noted. Denies chest pain, palpitations or increasing shortness of breath. Pain controlled. Magnesium 1.4. 06/13/2018 afebrile, WBC 3.2. Magnesium supplement yesterday, now WNL. Maintained on vancomycin and Zosyn. Wound cultures currently reporting presumptive staph aureus, gram-negative bacilli. Anaerobic cultures pending. Denies chest pain, palpitations or increasing shortness of breath. Pain controlled. Denies nausea or vomiting or diarrhea no abdominal pain Objective - Vital Signs Vital signs: Vital Signs Temp 98.3 F 06/13/18 15:00 Pulse 69 06/13/18 20:25 Resp 18 06/13/18 15:00 BP 164/100 06/13/18 20:25 Pulse Ox 92 L 06/13/18 15:00 Intake & Output 06/13/18 06/13/18 06/14/18 06:59 18:59 06:59 Intake Total 1000 600 Balance 1000 600 Intake: IV 600 Piperacillin-Tazobactam 3 100 .375 gm In Sodium Chloride 0.9% 100 ml @ 25 mls/hr IVPB Q8HR [facility] Rx# :[id number] Vancomycin 1,750 mg In 500 Sodium Chloride 0.9% 500 ml 500 ml @ 167 mls/hr IVPB Q12H [facility] Rx#: [id number] Oral 1000 Other: Voiding Method Toilet Toilet # Voids 2 - Exam PHYSICAL EXAM: VITAL SIGNS: As above GENERAL: Sitting up in bed, no acute distress HEENT: Conjunctivae normal. eyes normal. Oral Mucosa moist NECK: No JVD. No thyroid enlargement. No LNs CARDIOVASCULAR: S1, S2 muffled. No murmur RESPIRATION: Breath sounds diminished in the bases. No rhonchi or crackles. ABDOMEN: Soft, nontender . No guarding. no masses palpable. Positive Bowel sounds LEGS: Slowly improving Bilateral leg edema, diminished pulses bilateral with significant ulceration left greater than right foot, peripheral neuropathy present PSYCHIATRY: Alert and oriented -3, mood and affect normal. NERVOUS SYSTEM: Cranial N 2-12 grossly normal. Moves all 4 limbs. Diffuse weakness No focal deficits. Diffuse tremors Lymphatic system. No LN neck axilla or groin. Microbiology 06/11/18 20:00 Foot - Right Gram Stain - Preliminary 06/11/18 20:00 Foot - Right Wound Culture - Preliminary Presumptive Staph aureus Gram Neg Bacilli 06/11/18 15:28 Blood Blood Culture - Preliminary No Growth after 48 hours 06/11/18 20:00 Foot - Left Gram Stain - Preliminary 06/11/18 20:00 Foot - Left Wound Culture - Preliminary Presumptive Staph aureus Gram Neg Bacilli 06/11/18 16:30 Urine,Voided Urine Culture - Final 06/11/18 20:00 Foot - Left Anaerobic Culture - Preliminary 06/11/18 20:00 Foot - Right Anaerobic Culture - Preliminary - Labs CBC & Chem 7: 06/13/18 05:18 06/13/18 05:18 Labs: Abnormal Lab Results - Last 24 Hours (Table) 06/13/18 06/13/18 Range/Units 05:18 05:18 WBC 3.2 L (3.8-10.6) k/uL RBC 3.33 L (4.30-5.90) m/uL MCV 124.4 H (80.0-100.0) fL MCH 41.1 H (25.0-35.0) pg Plt Count 110 L (150-450) k/uL Lymphocytes # 0.5 L (1.0-4.8) k/uL Carbon Dioxide 31 H (22-30) mmol/L Glucose 105 H (74-99) mg/dL Microbiology - Last 24 Hours (Table) 06/11/18 20:00 Gram Stain - Preliminary Foot - Right Wound Culture - Preliminary Presumptive Staph aureus Gram Neg Bacilli 06/11/18 15:28 Blood Culture - Preliminary Blood No Growth after 48 hours 06/11/18 20:00 Gram Stain - Preliminary Foot - Left Wound Culture - Preliminary Presumptive Staph aureus Gram Neg Bacilli 06/11/18 16:30 Urine Culture - Final Urine,Voided Assessment and Plan Assessment: -Bilateral severe leg ulceration, cellulitis with failed outpatient treatment.wound cultures -presumptive staph aureus, gram-negative bacilli. -Peripheral vascular disease -Hypomagnesemia -EtOH abuse, EtOH withdrawal with acute DTs -Hypertension -History of nicotine dependence -COPD Plan: Continue on current medication regime ,monitoring and symptomatic treatment.Maintain CIWA protocol. Final culture results pending .Antibiotics/ Wound Care as per infectious disease. close monitoring of renal function, electrolytes,repeat labs ordered for a.m. aggressive pulmonary toileting .Continue on nebulized bronchodilators, nicotine patch. Smoking cessation readdressed. PT/OT Potential subacute rehab at discharge. The impression and plan of care has been dictated as directed. : I performed a history and examination of this patient, discussed the same with the dictator. I agree with the dictator's note ,documented as a scribe. Any additional findings or plans will be noted.
--- NOTE | 2018-06-13 22:16 | PN ---
PROGRESS NOTE DATE OF SERVICE: 06/13/2018. REASON FOR FOLLOWUP: Bilateral lower extremity venous stasis ulcer with secondary cellulitis. INTERVAL HISTORY: The patient is afebrile. He is breathing comfortably. Denies having any chest pain. No shortness of breath or cough. Pain to the legs, especially left foot area has decreased. No nausea, no vomiting. No abdominal pain. No diarrhea. PHYSICAL EXAMINATION: Blood pressure is 164/100, pulse of 69, temperature 98. General description is a middle- aged male lying in bed in no distress. Respiratory system: Unlabored breathing. Clear to auscultation anteriorly. Heart S1, S2. Regular rate and rhythm. Abdomen soft no tenderness. Foot wound dressed up. No obvious drainage on the dressing. LABS: Hemoglobin is 13.7, white count 3.2 with a BUN of 15, creatinine 0.76. Wound culture now showing presumptive Staph aureus and gram-negative bacilli. DIAGNOSTIC IMPRESSION AND PLAN: Patient with bilateral foot venous stasis ulcer with skin cellulitis left is more marked than the right leg. Culture showing Staph aureus, possible MRSA and gram- negative. Patient currently covered on Zosyn and vancomycin that will continue. We will get a mid line tomorrow for outpatient IV antibiotic therapy. Continue supportive care. MMODL / IJN: [id number] /
[2018-06-13] MEDS ORDERED: hydrALAZINE HCL 20 MG/ML 1 ML VIAL IVP STA (23:34)
[2018-06-14] MEDS: VANCOMYCIN 1,750 MG in SODIUM CHLORIDE 0.9% 500 ML 500 ML IVPB SCH ×2 (06:09→19:07)
[2018-06-14] MEDS: cloNIDine HCL 0.1 MG TAB PO SCH ×3 (06:17→21:48)
[2018-06-14] MEDS: ENOXAPARIN 40 MG/0.4 ML SYRINGE SQ SCH (08:09)
[2018-06-14] MEDS: PIPERACILLIN-TAZOBACTAM 3.375 GM in SODIUM CHLORIDE 0.9% 100 ML IVPB SCH ×2 (08:09→15:00)
[2018-06-14] MEDS: NICOTINE 14MG/24HR PATCH TRANSDERM SCH (08:09)
[2018-06-14] MEDS: MAGNESIUM OXIDE 400 MG TAB PO SCH ×3 (08:10→21:48)
[2018-06-14] MEDS: PANTOPRAZOLE 40 MG TABLET PO SCH (08:10)
[2018-06-14] MEDS: FOLIC ACID 1 MG TAB PO SCH (08:10)
[2018-06-14] MEDS: THIAMINE 100 MG TAB PO SCH ×4 (08:14→15:00)
[2018-06-14] MEDS: MULTIVITAMINS, THERA 1 EACH TAB PO SCH (08:14)
[2018-06-14] MEDS: HYDROcodone/APAP 5-325MG 1 EACH TAB PO PRN ×3 (08:15→21:48)
[2018-06-14 08:16] LABS: Basophils % (A) 0 %; Eosinophils # (A) 0.2 k/uL (0-0.7); Eosinophils % (A) 4 %; HCT 41.2 % (39.0-53.0); HGB 13.9 gm/dL (13.0-17.5); Lymphocytes # (A) 0.5 k/uL (1.0-4.8); Lymphocytes % (A) 10 %; MCH 41.5 pg (25.0-35.0); MCHC 33.7 g/dL (31.0-37.0); Macrocytosis Marked; Mean Platelet Volume 7.2; Monocytes # (A) 0.3 k/uL (0-1.0); Monocytes % (A) 7 %; Neutrophils # (A) 3.5 k/uL (1.3-7.7); Neutrophils % (A) 75 %; Platelet Count 121 k/uL (150-450); RBC 3.35 m/uL (4.30-5.90); RDW 15.1 % (11.5-15.5); WBC 4.7 k/uL (3.8-10.6)
[2018-06-14 08:31] LABS: Anion Gap 5 mmol/L; Blood Urea Nitrogen 15 mg/dL (9-20); Calcium 9.4 mg/dL (8.4-10.2); Carbon Dioxide 31 mmol/L (22-30); Chloride 102 mmol/L (98-107); Glucose 105 mg/dL (74-99); Magnesium 1.9 mg/dL (1.6-2.3); Potassium 4.4 mmol/L (3.5-5.1); Sodium 138 mmol/L (137-145)
[2018-06-14] MEDS: IPRATROPIUM-ALBUTEROL 3 ML NEB INHALATION SCH ×3 (09:55→19:54)
[2018-06-14] MEDS: HYDROmorphone 0.5 MG/0.5 ML SYRINGE IVP PRN ×2 (10:51→19:05)
[2018-06-14] MEDS: COLLAGENASE 250 UNIT/GM OINTMENT 30 GM TUBE TOPICAL SCH (12:47)
--- NOTE | 2018-06-14 13:07 | P.PN ---
Subjective 58-year-old gentleman admitted with bilateral leg ulceration, cellulitis with failure of outpatient treatment, peripheral vascular disease, EtOH abuse and multiple other medical issues. Maintained on broad-spectrum empiric antibiotics., IV fluid hydration. Evaluated by infectious disease with antibiotics adjusted, wound care recommendations noted. Denies chest pain, palpitations or increasing shortness of breath. Pain controlled. Magnesium 1.4. 06/13/2018 afebrile, WBC 3.2. Magnesium supplement yesterday, now WNL. Maintained on vancomycin and Zosyn. Wound cultures currently reporting presumptive staph aureus, gram-negative bacilli. Anaerobic cultures pending. Denies chest pain, palpitations or increasing shortness of breath. Pain controlled. Denies nausea or vomiting or diarrhea no abdominal pain 06/14/2018 Patient blood cultures are still pending. Patient will not require any IV antibiotics as per infectious disease and his wounds look better. Constitutional: Denied any fatigue denied any fever. Cardio vascular: denied any chest pain, palpitations Gastrointestinal denied any nausea vomiting Pulmonary: Denied any shortness of breath cough Neurologic denied any new focal deficits All inpatient medications were reviewed and appropriate changes in these medications as dictated in the interval history and assessment and plan. Objective - Vital Signs Vital signs: Vital Signs Temp 98.2 F 06/14/18 06:31 Pulse 82 06/14/18 06:31 Resp 18 06/14/18 08:00 BP 176/96 06/14/18 08:15 Pulse Ox 90 L 06/14/18 06:31 Intake & Output 06/13/18 06/14/18 06/14/18 18:59 06:59 18:59 Intake Total 600 500 Balance 600 500 Intake: IV 600 Piperacillin-Tazobactam 3 100 .375 gm In Sodium Chloride 0.9% 100 ml @ 25 mls/hr IVPB Q8HR [facility] Rx# :[id number] Vancomycin 1,750 mg In 500 Sodium Chloride 0.9% 500 ml 500 ml @ 167 mls/hr IVPB Q12H [facility] Rx#: [id number] Oral 500 Other: Voiding Method Toilet Toilet # Voids 1 - Exam GENERAL: Sitting up in bed, no acute distress HEENT: Conjunctivae normal. eyes normal. Oral Mucosa moist NECK: No JVD. No thyroid enlargement. No LNs CARDIOVASCULAR: S1, S2 muffled. No murmur RESPIRATION: Breath sounds diminished in the bases. No rhonchi or crackles. ABDOMEN: Soft, nontender . No guarding. no masses palpable. Positive Bowel sounds LEGS: Slowly improving Bilateral leg edema, diminished pulses bilateral with significant ulceration left greater than right foot, peripheral neuropathy present PSYCHIATRY: Alert and oriented -3, mood and affect normal. NERVOUS SYSTEM: Cranial N 2-12 grossly normal. Moves all 4 limbs. Diffuse weakness No focal deficits. Diffuse tremors Lymphatic system. No LN neck axilla or groin. - Labs CBC & Chem 7: 06/14/18 07:28 06/14/18 07:28 Labs: Abnormal Lab Results - Last 24 Hours (Table) 06/14/18 06/14/18 Range/Units 07:28 07:28 RBC 3.35 L (4.30-5.90) m/uL MCV 123.0 H (80.0-100.0) fL MCH 41.5 H (25.0-35.0) pg Plt Count 121 L (150-450) k/uL Lymphocytes # 0.5 L (1.0-4.8) k/uL Carbon Dioxide 31 H (22-30) mmol/L Glucose 105 H (74-99) mg/dL Microbiology - Last 24 Hours (Table) 06/11/18 20:00 Anaerobic Culture - Preliminary Foot - Left 06/11/18 20:00 Gram Stain - Preliminary Foot - Right Wound Culture - Preliminary Presumptive Staph aureus Gram Neg Bacilli 06/11/18 15:28 Blood Culture - Preliminary Blood No Growth after 48 hours 06/11/18 20:00 Gram Stain - Preliminary Foot - Left Wound Culture - Preliminary Presumptive Staph aureus Gram Neg Bacilli 06/11/18 16:30 Urine Culture - Final Urine,Voided Assessment and Plan Plan: -Bilateral severe leg ulceration, cellulitis with failed outpatient treatment.wound cultures -presumptive staph aureus, gram-negative bacilli. Her chest pending -Peripheral vascular disease -Hypomagnesemia -EtOH abuse, EtOH withdrawal with acute DTs -Hypertension -History of nicotine dependence -COPD Plan: Continue on current medication regime ,monitoring and symptomatic treatment.Maintain CIWA protocol. Final culture results pending .Antibiotics/ Wound Care as per infectious disease. close monitoring of renal function, electrolytes,repeat labs ordered for a.m. aggressive pulmonary toileting .Continue on nebulized bronchodilators, nicotine patch. Smoking cessation readdressed. PT/OT Potential subacute rehab at discharge.
--- NOTE | 2018-06-14 16:23 | PN ---
PROGRESS NOTE DATE OF SERVICE: 06/14/2018. REASON FOR FOLLOWUP: Bilateral foot wound and cellulitis. INTERVAL HISTORY: The patient is currently put on hold as his culture has not been finalized. The patient has been breathing comfortably. Denies having any chest pain. No shortness of breath or cough. No abdominal pain. Pain to the foot wound area has slightly decreased in intensity. The swelling is decreased and there is no redness or any drainage. EXAMINATION: Blood pressure 163/100 with a pulse of 69, temperature 98.6. He is 92% on room air. General description is a middle-aged male lying in bed in no distress. Respiratory system: Unlabored breathing. Clear to auscultation anteriorly. Heart S1, S2. Regular rate and rhythm. Abdomen soft, no tenderness. Examination of the foot wound did show significant improvement as well as left foot is concerned. Wound be still have some slough tissue but surrounding redness has resolved. Wound at the base of the 2nd and 3rd toe on both sides did not show any slough tissue or surrounding redness. LABS: Hemoglobin is 13.8, white count 4.7, BUN of 15, creatinine 0.89. DIAGNOSTIC IMPRESSION AND PLAN: Patient with bilateral foot wound with secondary cellulitis. Culture has been currently showing Staph aureus with gram-negative bacilli. Unfortunately, is still pending has been put on hold. We will be planning on oral antibiotic on discharge in view of significant improvement in his cellulitis. Local care to continue with Santyl to the left foot dorsum wound and Aquacel Silver to the wound at the base of the 2nd and 3rd toe on both sides and follow up in the [facility] next week. All his questions and concerns were answered. MMODL / IJN: [id number] /
[2018-06-14] MEDS: ALPRAZolam 0.25 MG TAB PO PRN (21:48)
[2018-06-14] MEDS: LOSARTAN-HCTZ 50-12.5 MG 1 EACH TAB PO SCH (21:48)
[2018-06-14 23:05] VITALS: RESP 18
[2018-06-15 06:14] VITALS: PULSE 85; TEMP 97
[2018-06-15] MEDS: VANCOMYCIN 1,750 MG in SODIUM CHLORIDE 0.9% 500 ML 500 ML IVPB SCH (06:22)
[2018-06-15] MEDS: IPRATROPIUM-ALBUTEROL 3 ML NEB INHALATION SCH ×2 (07:32→15:46)
[2018-06-15] MEDS: MULTIVITAMINS, THERA 1 EACH TAB PO SCH (07:53)
[2018-06-15] MEDS: FOLIC ACID 1 MG TAB PO SCH (07:53)
[2018-06-15] MEDS: PIPERACILLIN-TAZOBACTAM 3.375 GM in SODIUM CHLORIDE 0.9% 100 ML IVPB SCH ×3 (07:53)
[2018-06-15] MEDS: cloNIDine HCL 0.1 MG TAB PO SCH (07:53)
[2018-06-15] MEDS: PANTOPRAZOLE 40 MG TABLET PO SCH (07:53)
[2018-06-15] MEDS: MAGNESIUM OXIDE 400 MG TAB PO SCH (07:53)
[2018-06-15] MEDS: THIAMINE 100 MG TAB PO SCH (07:53)
[2018-06-15] MEDS: NICOTINE 14MG/24HR PATCH TRANSDERM SCH (07:53)
[2018-06-15] MEDS: COLLAGENASE 250 UNIT/GM OINTMENT 30 GM TUBE TOPICAL SCH (07:54)
[2018-06-15 08:06] LABS: Basophils % (A) 1 %; Eosinophils # (A) 0.2 k/uL (0-0.7); Eosinophils % (A) 6 %; HCT 42.3 % (39.0-53.0); Lymphocytes # (A) 0.4 k/uL (1.0-4.8); Lymphocytes % (A) 9 %; MCH 41.5 pg (25.0-35.0); MCHC 33.2 g/dL (31.0-37.0); MCV 125.2 fL (80.0-100.0); Macrocytosis Marked; Mean Platelet Volume 6.9; Monocytes # (A) 0.3 k/uL (0-1.0); Monocytes % (A) 8 %; Neutrophils # (A) 2.9 k/uL (1.3-7.7); Neutrophils % (A) 73 %; Platelet Count 133 k/uL (150-450); RBC 3.38 m/uL (4.30-5.90); RDW 15.3 % (11.5-15.5)
[2018-06-15] MEDS: ENOXAPARIN 40 MG/0.4 ML SYRINGE SQ SCH (08:06)
[2018-06-15 08:09] LABS: Anion Gap 4 mmol/L; Blood Urea Nitrogen 14 mg/dL (9-20); Calcium 9.2 mg/dL (8.4-10.2); Carbon Dioxide 33 mmol/L (22-30); Chloride 99 mmol/L (98-107); Glucose 101 mg/dL (74-99); Potassium 4.1 mmol/L (3.5-5.1); Sodium 136 mmol/L (137-145)
[2018-06-15 11:33] VITALS: BP 166/99
--- NOTE | 2018-06-15 13:52 | P.DS ---
Providers Date of admission: 06/13/18 09:05 Attending physician: Celeste Candelario Consults: 06/11/18 17:08 Consult Physician Routine Consulting Provider: Johnna Matt Consult Reason/Comments: wound care Do you want consulting provider notified?: Yes Primary care physician: [facility] Course: 58-year-old gentleman admitted with bilateral leg ulceration, cellulitis with failure of outpatient treatment, peripheral vascular disease, EtOH abuse and multiple other medical issues. Maintained on broad-spectrum empiric antibiotics., IV fluid hydration. Evaluated by infectious disease with antibiotics adjusted, wound care recommendations noted. Denies chest pain, palpitations or increasing shortness of breath. Pain controlled. Magnesium 1.4. 06/13/2018 afebrile, WBC 3.2. Magnesium supplement yesterday, now WNL. Maintained on vancomycin and Zosyn. Wound cultures currently reporting presumptive staph aureus, gram-negative bacilli. Anaerobic cultures pending. Denies chest pain, palpitations or increasing shortness of breath. Pain controlled. Denies nausea or vomiting or diarrhea no abdominal pain 06/14/2018 Patient blood cultures are still pending. Patient will not require any IV antibiotics as per infectious disease and his wounds look better. 06/15/2018 Patient is looking much better wounds are much better. Local wound care counseling was provided with infectious disease and patient will be discharged on Augmentin. Patient has MSSA along with anaerobic bacteria and gram-negative bacilli. Patient will follow with infectious disease as an outpatientGENERAL: Sitting up in bed, no acute distress HEENT: Conjunctivae normal. eyes normal. Oral Mucosa moist NECK: No JVD. No thyroid enlargement. No LNs CARDIOVASCULAR: S1, S2 muffled. No murmur RESPIRATION: Breath sounds diminished in the bases. No rhonchi or crackles. ABDOMEN: Soft, nontender . No guarding. no masses palpable. Positive Bowel sounds LEGS: Slowly improving Bilateral leg edema, diminished pulses bilateral with significant ulceration left greater than right foot, peripheral neuropathy present-redness significantly improved since admission PSYCHIATRY: Alert and oriented -3, mood and affect normal. NERVOUS SYSTEM: Cranial N 2-12 grossly normal. Moves all 4 limbs. Diffuse weakness No focal deficits. Diffuse tremors Lymphatic system. No LN neck axilla or groin. Assessment and Plan Plan: -Bilateral severe leg ulceration, cellulitis with failed outpatient treatment.wound cultures -positive for and aerobic bacteria gram-negative bacilli and MSSA -Peripheral vascular disease -Hypomagnesemia -EtOH abuse, EtOH withdrawal with acute DTs -Hypertension elevated blood pressures increasing the dose of losartan and hydrochlorothiazide combination pill -History of nicotine dependence -COPD without any acute exacerbation Patient Condition at Discharge: Fair Plan - Discharge Summary Discharge Rx Participant: Yes New Discharge Prescriptions: New Amoxic-Pot Clav 875-125Mg [Augmentin 875-125] 1 tab PO Q12HR #20 tablet Albuterol Inhaler [Ventolin Hfa Inhaler] 1 - 2 puff INHALATION Q6HR PRN #1 inhaler PRN Reason: Shortness Of Breath Or Wheezing Changed Losartan-Hctz 50-12.5 mg [Hyzaar 50-12.5] 2 tab PO HS #0 Discharge Medication List Albuterol Inhaler [Ventolin Hfa Inhaler] 1 - 2 puff INHALATION Q6HR PRN #1 inhaler 06/15/18 [Rx] Amoxic-Pot Clav 875-125Mg [Augmentin 875-125] 1 tab PO Q12HR #20 tablet [Rx] Losartan-Hctz 50-12.5 mg [Hyzaar 50-12.5] 2 tab PO HS #0 06/15/18 [Rx] Follow up Appointment(s)/Referral(s): [facility], [NON-STAFF] - As Needed Michael Lund DO [Primary Care Provider] - 1-2 days Patient Instructions/Handouts: Venous Insufficiency (DC), Chronic Wounds (DC) Activity/Diet/Wound Care/Special Instructions: Aquacel silver dressing to the wound at base of toes both feet and santyl to the wound on left foot dorsum wound , to be changed q48hr follow up with Dr Matt in wound care center next week , call [phone] to make an appointment Discharge Disposition: HOME SELF-CARE
--- NOTE | 2018-06-15 14:03 | PN ---
PROGRESS NOTE DATE OF SERVICE: 06/15/2018. REASON FOR FOLLOWUP: Bilateral foot wound with secondary cellulitis. INTERVAL HISTORY: The patient is currently afebrile. He is breathing comfortably. Patient denies having any chest pain, shortness of breath or cough. No nausea, no vomiting. No abdominal pain. No diarrhea. PHYSICAL EXAMINATION: Blood pressure is 156/99 with a pulse of 75, temperature 97. He is 92% on room air. General description is a middle-aged male lying in bed in no distress. Respiratory system: Unlabored breathing. Clear to auscultation anteriorly. Heart S1, S2. Regular rate and rhythm. Abdomen soft, no tenderness. LABS: Hemoglobin is 14, white count 4.0, BUN of 14, creatinine 0.97. Wound culture with MSSA and gram-negative, ID on gram-negative currently pending. DIAGNOSTIC IMPRESSION AND PLAN: Patient with bilateral foot wound with secondary cellulitis, mostly marked on the left foot. Culture with MSSA gram-negative anaerobic gram-positive cocci. Antibiotic will transition to Augmentin 875 b.i.d. for about 7-10 days. Local wound care to continue with Santyl and Aquacel Silver dressing as ordered and follow up in the Wound Care Center next week. All questions and concerns were answered. MMODL / IJN: [id number] /
[2018-06-15] MEDS ORDERED: VANCOMYCIN TROUGH DUE 1 EACH MISC MISCELLANE ONE (17:00)
== END 2018-06-15 15:54 | disposition home or self-care (01) | DRG 300 ==
LOC: EC 14:05 → INTOOBSV 16:55 → 4MS4W 16:55 → OBSVTOIN 06-13 09:05
PROVIDERS: ADMIT Hospitalist; ATTEND Hospitalist
DX: I83.215 Varicose veins of right lower extremity with both ulcer other part of foot and inflammation (principal); L03.115 Cellulitis of right lower limb; F10.231 Alcohol dependence with withdrawal delirium; L03.116 Cellulitis of left lower limb; I83.225 Varicose veins of left lower extremity with both ulcer other part of foot and inflammation; I87.2 Venous insufficiency (chronic) (peripheral); E83.42 Hypomagnesemia; J44.9 Chronic obstructive pulmonary disease, unspecified; B95.61 Methicillin susceptible Staphylococcus aureus infection as the cause of diseases classified elsewhere; K21.9 Gastro-esophageal reflux disease without esophagitis; I10 Essential (primary) hypertension; F17.200 Nicotine dependence, unspecified, uncomplicated; I73.9 Peripheral vascular disease, unspecified; B96.89 Other specified bacterial agents as the cause of diseases classified elsewhere; G62.9 Polyneuropathy, unspecified; Z86.14 Personal history of Methicillin resistant Staphylococcus aureus infection; Z71.6 Tobacco abuse counseling; Z80.1 Family history of malignant neoplasm of trachea, bronchus and lung; Z79.899 Other long term (current) drug therapy; L97.519 Non-pressure chronic ulcer of other part of right foot with unspecified severity; L97.529 Non-pressure chronic ulcer of other part of left foot with unspecified severity
CPT/HCPCS: 36415; 80048; 80053; 80202; 81001; 82550; 82553; 83735; 84100; 84484; 85025; 85610; 85730; 87040; 87070; 87075; 87077; 87086; 87186; 87205; 93005; 94640; 96361; 96365; 96375; 99285